=== PATIENT | female | born 1980 | race Caucasian/White ===

== ENCOUNTER 2017-03-01 02:10 | Inpatient (IN) | payer MEDICAID ==
[~2017-03-01] VITALS: Ht 154.9 cm; Wt 85.2 kg
[2017-03-01 02:54] VITALS: BP 115/72; PULSE 83; RESP 18
[2017-03-01] MEDS ORDERED: LACTATED RINGER'S 1,000 ML IV SCH (03:41)
[2017-03-01] MEDS ORDERED: LIDOCAINE 1% (MPF) 30 ML INJ INJ PRN (04:00)
[2017-03-01] MEDS ORDERED: CARBOPROST 250 MCG INJ IM PRN (04:00)
[2017-03-01] MEDS ORDERED: OXYTOCIN 30 UNITS/LR 500 ML IV SCH ×4 (04:00→12:33)
[2017-03-01] MEDS ORDERED: OXYTOCIN 30 UNITS/LR 500 ML IV PRN (04:00)
[2017-03-01] MEDS ORDERED: MINERAL OIL LIGHT 10 ML VIAL TOP ONE (04:00)
[2017-03-01] MEDS ORDERED: LACTATED RINGER'S 1,000 ML IV PRN (04:00)
[2017-03-01] MEDS ORDERED: MISOPROSTOL 200 MCG TAB PR PRN (04:00)
[2017-03-01] MEDS ORDERED: BUTORPHANOL 2 MG INJ IV PRN (04:00)
[2017-03-01] MEDS ORDERED: IBUPROFEN 600 MG TAB PO PRN (04:00)
[2017-03-01] MEDS ORDERED: METHYLERGONOVINE 0.2 MG INJ IM PRN (04:00)
[2017-03-01 04:08] LABS: BASOPHILS % 0.3 % (0.0-2.0); EOSINOPHILS # 0.2 10^3/ul (0.0-0.5); EOSINOPHILS % 2.3 % (0.0-7.0); HEMATOCRIT 35.6 % (37.0-47.0); HEMOGLOBIN 11.8 g/dl (12.0-16.0); LYMPHOCYTES # 1.8 10^3/ul (0.8-2.9); LYMPHOCYTES % 18.3 % (15.0-51.0); MEAN CORPUSCULAR HGB CONC 33.1 g/dl (32.0-37.0); MEAN CORPUSCULAR VOLUME 93.4 fl (82.0-101.0); MEAN PLATELET VOLUME 9.2 fl (7.4-10.4); MONOCYTES % 10.2 % (0.0-11.0); NEUTROPHILS % 68.3 % (39.0-77.0); PLATELET COUNT 262 10^3/UL (140-415); RED BLOOD COUNT 3.81 10^6/ul (4.20-5.40); RED CELL DISTRIBUTION WIDTH 13.7 % (11.5-14.5); WHITE BLOOD COUNT 9.6 10^3/ul (4.8-10.8)
[2017-03-01 04:15] LABS: INR 0.9; PARTIAL THROMBOPLASTIN TIME 23.3 Sec (25.0-35.0); PROTIME 12.1 Sec (12.2-14.2); PT RATIO 0.9
[2017-03-01] MEDS ORDERED: LACTATED RINGER'S 1,000 ML IV ONE (04:39)
--- NOTE | 2017-03-01 04:41 | RADRPT ---
PROCEDURE: Obstetrical ultrasound, limited. CLINICAL INDICATION: Pelvic pain. TECHNIQUE: Multiple sonographic images of the pelvis were obtained using transabdominal technique . Images were obtained with eli scale and color Doppler. The images were reviewed on a PACS works tation. COMPARISON: No prior studies are available for comparison. FINDINGS: There is a single living intrauterine gestation with the fetus in a vertex presentation. hear t tones of 148 beats per minute are identified. The placenta is posterior in location, grade 2. Th ere is no evidence of placenta previa or abruption. Measurements were made in order to determine age. The results are as follows: BPD =8.68 cm HC =32.30 cm AC =34.36 cm FL =7.76 cm. Estimated gestational age of approximately 37 weeks and 3 days. The estimated date of delivery is 03/19/2017. The EFW = 3361 +/- 504 grams. Estimated weight percentage equals 56.3%. IMPRESSION: Single viable intrauterine gestation of approximately 37 weeks and 3 days, with an ultrasound GALINA of 03/19/2017. .Guido Damian MD, MD Date Time Electronically viewed and signed by .Guido Damian MD, MD on 03/01/2017 04:40 .T/
[2017-03-01] MEDS ORDERED: TRIMETHOBENZAMIDE 100 MG/ML VIAL IM PRN (05:00)
[2017-03-01] MEDS ORDERED: CITRIC ACID/NA CITRATE 30 ML CUP PO ONE (05:00)
[2017-03-01] MEDS ORDERED: FENTAnyl 2MCG/ML-ROPIV 0.2% 100 ML BAG EPI SCH ×2 (05:00)
[2017-03-01] MEDS ORDERED: ONDANSETRON 4 MG INJ IV PRN ×3 (05:00→14:30)
[2017-03-01] MEDS ORDERED: NALOXONE (0.4 MG/ML) INJ IV PRN (05:00)
[2017-03-01] MEDS ORDERED: KETOROLAC 30 MG INJ IV PRN (05:00)
[2017-03-01] MEDS ORDERED: DIPHENHYDRAMINE 50 MG INJ IV PRN (05:00)
[2017-03-01] MEDS ORDERED: NALBUPHINE HCL (10 MG/1 ML) INJ IV PRN (05:00)
[2017-03-01] MEDS ORDERED: morphine 2 MG INJ IV PRN (05:00)
[2017-03-01] MEDS ORDERED: morphine 4 MG/ML VIAL IV PRN (05:00)
--- NOTE | 2017-03-01 06:09 | HP ---
Date/Time of Note Date/Time of Note DATE: 03/01/17 TIME: 05:55 OB - History Hx of Present Free Text/Dictation 36 y.o A2 (x2sab) at 38w2d came to triage with c/o uterine contractions every 5 min apart,with intact membrane. VE 4/70%/-2 antenatally had unevenful course except 1hr GTT high f/b 3hr GTT normal admitted for expectant management. Chief Complaint: uterine contractions q5min Estimated Due Date: Mar 13, 2017 : 6 Para: 3 Spontaneous : 2 Therapeutic : 0 Care: Good Care Ultrasounds: Normal mid trimester US Obstetrical Complications: None Medical Complications: None Past Family/Social History * Past Medical, Surgical, Family and Obstetric Histories reviewed from chart. Blood Type: O+ Rubella: immune RPR/VDRL: Negative GBS Status: Negative HBsAG: Negative OB Admission Exam Vital Signs Vital Signs Vital Signs Date Time Temp Pulse Resp B/P Pulse Ox O2 Delivery O2 Flow Rate FiO2 03/01/17 02:54 98.0 83 18 115/72 Room Air Physical Exam HEENT: WNL Heart: Rhythm Normal Lungs: Clear, Equal Abdomen: WNL Extremities: Normal Reflexes: Normal Cervical Dilatation: 4cm Effacement: 75% Station: -2 Membranes: Intact Amniotic Fluid: Unevaluable Heart Rate: 130's Accelerations: Accelerations Present Decelerations: No Decelerations Varibility: Moderate Contractions on Admission: < 5 Minutes Apart Intensity: Moderate Last 72 hours Lab Results CBC & BMP 03/01/17 03:35 OB Assessment/Plan Reason for admission: active labor Other Assessment: IUP 38w2d Plan: Expectant Management JA HINKLE MD Mar 01, 2017 06:07
[2017-03-01] MEDS ORDERED: EPHEDrine SULFATE 50 MG/5 ML SYG ONE (06:47)
[2017-03-01] MEDS ORDERED: PHENYLephrine (100 MCG/ML) 5ML SYG ONE (06:47)
[2017-03-01] MEDS ORDERED: DIBUCAINE 1% 30 GM OINT PR PRN ×2 (13:00→14:30)
[2017-03-01] MEDS ORDERED: WITCH HAZEL/GLYCERIN PAD PR PRN ×2 (13:00→14:30)
[2017-03-01] MEDS ORDERED: ACETAMINOPHEN 325 MG TAB PO PRN ×2 (13:00→14:30)
[2017-03-01] MEDS ORDERED: HYDROCODONE/APAP (5/325) TAB PO PRN ×3 (13:00→14:30)
[2017-03-01] MEDS ORDERED: BENZOCAINE 20% 56 ML SPRAY TOP PRN ×2 (13:00→14:30)
[2017-03-01] MEDS ORDERED: LANOLIN 7 GM TUBE TOP PRN ×2 (13:00→14:30)
[2017-03-01] MEDS ORDERED: OXYCODONE/ASPIRIN (4.88/325) TAB PO PRN ×3 (13:00→14:30)
[2017-03-01 13:02] VITALS: BP 116/74; PULSE 74; RESP 20
--- NOTE | 2017-03-01 13:43 | LDN ---
Date/Time of Note Date/Time of Note DATE: 03/01/17 TIME: 13:39 Delivery Summary Normal spontaneous vaginal delivery of a baby boy from OA position was delivered with no difficulty rest of the baby's body follow placenta spontaneous expulsion inspected complete peritoneal vaginal inspection no laceration estimated blood loss 200 cc Weeks of Gestation 38 weeks 2 days Placenta Delivered: Spontaneously Meconium: none Episiotomy: No Laceration repair: None Anesthesia type: Epidural Estimated blood loss: 200 Sponge & Needle done & correct: Yes All needle counts correct: Yes Any foreign bodies felt in the: No Problems: Infant Delivery Information Sex Sex: male Apgars 1 Minute: 9 5 Minute: 9 Suctioning Nose & mouth suctioned at renetta: Yes Delee suction performed: No Umbilical Cord Umbilical cord with: 3 Vessels Cord presentations: nuchal cord Cord Blood was obtained: Yes Mother & Baby Disposition Disposition Mom & Baby to Maternity; Good: Yes RICHMOND RUSS MD Mar 01, 2017 13:43
[2017-03-01 16:30] VITALS: BP 107/58; PULSE 83; RESP 20
[2017-03-01] MEDS: OXYTOCIN 30 UNITS/LR 500 ML IV SCH ×2 (16:43→18:08)
[2017-03-01] MEDS ORDERED: IBUPROFEN 600 MG TAB PO SCH (18:00)
[2017-03-01] MEDS: IBUPROFEN 600 MG TAB PO SCH (18:00)
[2017-03-01 20:00] VITALS: BP 107/66; PULSE 75; RESP 19
[2017-03-01] MEDS: HYDROCODONE/APAP (5/325) TAB PO PRN (20:22)
[2017-03-01] MEDS ORDERED: SENNA/DOCUSATE NA (8.6MG/50MG) TAB PO SCH (21:00)
[2017-03-02] VITALS: BP 99/64; PULSE 72; RESP 18
[2017-03-02] MEDS: IBUPROFEN 600 MG TAB PO SCH ×5 (00:02→23:21)
[2017-03-02] MEDS: OXYCODONE/ASPIRIN (4.88/325) TAB PO PRN (03:01)
[2017-03-02 04:00] VITALS: BP 97/53; PULSE 77; RESP 17; RESP 77
[2017-03-02 08:48] VITALS: BP 87/53; PULSE 77; RESP 19
[2017-03-02] MEDS: SENNA/DOCUSATE NA (8.6MG/50MG) TAB PO SCH ×2 (09:15→21:42)
--- NOTE | 2017-03-02 10:26 | PN ---
Date/Time of Note Date/Time of Note DATE: 03/02/17 TIME: 10:24 OB Subjective Subjective Subjective March 02, 2017 Post C section day 2 Doing Well Afebrile Ambulatory Chest Clear Breasts are soft , Nipples are intact Abdomen is soft Fundus is firm Moderate amount of lochia Perineum intact No calf tenderness No ankle edema Laboratory Tests Test 03/02/17 10:01 White Blood Count Pending Red Blood Count Pending Hemoglobin Pending Hematocrit Pending Mean Corpuscular Volume Pending Mean Corpuscular Hemoglobin Pending Mean Corpuscular Hemoglobin Concent Pending Red Cell Distribution Width Pending Platelet Count Pending Mean Platelet Volume Pending Current Medications Medications (Trade) Dose Ordered Sig/Leyla Route PRN Reason Start Time Stop Time Status Last Admin Dose Admin Lactated Ringer's (Lr) 1,000 ml @ 125 mls/hr Q8H IV 03/01/17 03:41 03/01/17 12:40 DC 03/01/17 04:00 Butorphanol Tartrate (Stadol) 2 mg Q2H PRN IV PAIN 03/01/17 04:00 03/01/17 12:40 DC Lidocaine 30 ml 30 ml ONCE PRN INJ EPISIOTOMY/TEARING 03/01/17 04:00 03/01/17 12:40 DC Oxytocin/Lactated Ringer's 500 ml @ 125 mls/hr ONCE -MAY REPEAT X1 IV 03/01/17 04:00 03/01/17 12:40 DC 03/01/17 12:38 Oxytocin/Lactated Ringer's 500 ml @ 125 mls/hr ONCE IV 03/01/17 04:00 03/01/17 12:40 DC Ibuprofen 600 mg 600 mg ONCE PRN PO Mild Pain (Pain Score 1-3) 03/01/17 04:00 03/01/17 12:40 DC 03/01/17 11:29 Lactated Ringer's 1,000 ml @ 2,000 mls/hr Q30M PRN IV PRE-EPIDURAL BOLUS 03/01/17 04:00 03/01/17 12:40 DC 03/01/17 04:27 Oxytocin/Lactated Ringer's 500 ml @ 0 mls/hr ONCE PRN IV For Hemorrhage Management 03/01/17 04:00 03/01/17 12:40 DC Methylergonovine Maleate (Methergine) 0.2 mg ONCE PRN IM VAGINAL BLEEDING 03/01/17 04:00 03/01/17 12:41 DC 03/01/17 11:11 Carboprost Tromethamine (Hemabate) 250 mcg ONCE PRN IM VAGINAL BLEEDING 03/01/17 04:00 03/01/17 12:41 DC Misoprostol (Cytotec) 1,000 mcg ONCE PRN IN VAGINAL BLEEDING 03/01/17 04:00 03/01/17 12:41 DC Mineral Oil ONCE ONCE TOP 03/01/17 04:00 03/01/17 04:01 DC Lactated Ringer's (Lr) 1,000 ml @ 1,000 mls/hr Q1H ONCE IV 03/01/17 04:39 03/01/17 05:38 DC 03/01/17 05:07 Citric Acid/ Sodium Citrate (Bicitra) 30 ml PRE-OP ONCE PO 03/01/17 05:00 03/01/17 05:01 DC 03/01/17 05:05 Naloxone HCl (Narcan) 0.1 mg Q2M PRN IV FOR RESP RATE 8 OR LESS 03/01/17 05:00 03/01/17 12:41 DC Ketorolac Tromethamine (Toradol) 30 mg Q6H PRN IV PAIN 03/01/17 05:00 03/01/17 12:41 DC Morphine Sulfate (morphine) 2 mg Q3H PRN IV PAIN LEVEL 1-5 03/01/17 05:00 03/01/17 12:41 DC Morphine Sulfate (morphine) 4 mg Q3H PRN IV PAIN LEVEL 6-10 03/01/17 05:00 03/01/17 12:41 DC Diphenhydramine HCl (Benadryl) 25 mg Q6H PRN IV ITCHING 03/01/17 05:00 03/01/17 12:41 DC Nalbuphine HCl (Nubain) 5 mg ONCE PRN IV ITCHING 03/01/17 05:00 03/01/17 12:41 DC Ondansetron HCl (Zofran Inj) 4 mg Q6H PRN IV NAUSEA AND/OR VOMITING 03/01/17 05:00 03/01/17 12:41 DC 03/01/17 05:05 Trimethobenzamide HCl (Tigan) 200 mg Q6H PRN IM NAUSEA AND/OR VOMITING 03/01/17 05:00 03/01/17 12:41 DC Fentanyl/ Ropivacaine 100 ml EPIDURAL INFUSION EPI 03/01/17 05:00 03/01/17 07:20 DC Ephedrine Sulfate 50 mg STK-MED ONCE .ROUTE 03/01/17 06:47 03/01/17 06:48 DC Phenylephrine HCl (Dillan-Synephrine Inj Syg) 500 mcg STK-MED ONCE .ROUTE 03/01/17 06:47 03/01/17 06:48 DC Fentanyl/ Ropivacaine 100 ml 100 ml EPIDURAL INFUSION EPI 03/01/17 05:00 03/01/17 12:41 DC Oxytocin/Lactated Ringer's 500 ml @ 0 mls/hr Q0M IV 03/01/17 08:30 03/01/17 12:41 DC 03/01/17 08:45 Oxytocin/Lactated Ringer's 500 ml @ 125 mls/hr Q4H IV 03/01/17 12:33 03/01/17 14:11 DC Ibuprofen (Motrin) 600 mg Q6 PO 03/01/17 18:00 03/01/17 18:00 DC Acetaminophen (Tylenol Tab) 650 mg Q4H PRN PO PAIN LEVEL 1-5 03/01/17 13:00 03/01/17 14:11 DC Acetaminophen/ Hydrocodone Bitart ([place] (5/325)) 1 tab Q4H PRN PO PAIN LEVEL 1-5 03/01/17 13:00 03/01/17 14:11 DC Acetaminophen/ Hydrocodone Bitart (Reynolds (5/325)) 2 tab Q4H PRN PO PAIN LEVEL 6-10 03/01/17 13:00 03/01/17 14:11 DC Oxycodone/Aspirin (Percodan) 1 tab Q3H PRN PO PAIN LEVEL 1-5 03/01/17 13:00 03/01/17 14:11 DC Oxycodone/Aspirin (Percodan) 2 tab Q3H PRN PO PAIN LEVEL 6-10 03/01/17 13:00 03/01/17 14:11 DC Ondansetron HCl (Zofran Inj) 4 mg Q6H PRN IV NAUSEA AND/OR VOMITING 03/01/17 13:00 03/01/17 14:11 DC Senna/Docusate Sodium (Senokot-S) 1 tab BID PO 03/01/17 21:00 03/01/17 21:00 DC Witch Tammy/ Glycerin (Tucks Pads) 1 pad BEDSIDE MEDICATION PRN IN HEMORRHOID/EPISIOTMY PAIN 03/01/17 13:00 03/01/17 14:10 DC Benzocaine (Dermoplast [place]) 1 spray BEDSIDE MEDICATION PRN TOP HEMORRHOID/EPISIOTMY PAIN 03/01/17 13:00 03/01/17 14:10 DC Dibucaine (Nupercainal) 1 applic BEDSIDE MEDICATION PRN IN HEMORRHOID/EPISIOTMY PAIN 03/01/17 13:00 03/01/17 14:10 DC Lanolin (Fqg-L-Qvnoli) 1 applic BEDSIDE MEDICATION PRN TOP BEDSIDE FOR JAREN TO NIPPLES 03/01/17 13:00 03/01/17 14:10 DC Measles/Mumps/ Rubella Vaccine Live (Mmr Ii Vaccine) 0.5 ml ONCE ONCE SC* 03/03/17 09:00 03/03/17 09:00 DC IV Flush 10 ml 10 ml Q8H AND PRN IV 03/01/17 13:00 03/01/17 14:11 DC Oxytocin/Lactated Ringer's 500 ml @ 125 mls/hr Q4H IV 03/01/17 14:08 03/01/17 22:07 DC 03/01/17 16:43 Ibuprofen (Motrin) 600 mg Q6 PO 03/01/17 14:30 03/02/17 06:03 Acetaminophen (Tylenol Tab) 650 mg Q4H PRN PO PAIN LEVEL 1-5 03/01/17 14:30 03/01/17 14:35 Acetaminophen/ Hydrocodone Bitart ([place] (5/325)) 1 tab Q4H PRN PO PAIN LEVEL 1-5 03/01/17 14:30 03/01/17 20:22 Acetaminophen/ Hydrocodone Bitart ([place] (5/325)) 2 tab Q4H PRN PO PAIN LEVEL 6-10 03/01/17 14:30 Oxycodone/Aspirin (Percodan) 1 tab Q3H PRN PO PAIN LEVEL 1-5 03/01/17 14:30 03/02/17 03:01 Oxycodone/Aspirin (Percodan) 2 tab Q3H PRN PO PAIN LEVEL 6-10 03/01/17 14:30 Ondansetron HCl (Zofran Inj) 4 mg Q6H PRN IV NAUSEA AND/OR VOMITING 03/01/17 14:30 Senna/Docusate Sodium (Senokot-S) 1 tab BID PO 03/02/17 09:00 03/02/17 09:15 Witch Tammy/ Glycerin (Tucks Pads) 1 pad BEDSIDE MEDICATION PRN IN HEMORRHOID/EPISIOTMY PAIN 03/01/17 14:30 03/02/17 09:15 Benzocaine (Dermoplast [place]) 1 spray BEDSIDE MEDICATION PRN TOP HEMORRHOID/EPISIOTMY PAIN 03/01/17 14:30 03/01/17 14:35 Dibucaine (Nupercainal) 1 applic BEDSIDE MEDICATION PRN IN HEMORRHOID/EPISIOTMY PAIN 03/01/17 14:30 03/02/17 09:16 Lanolin (Vkl-D-Tjdehs) 1 applic BEDSIDE MEDICATION PRN TOP BEDSIDE FOR JAREN TO NIPPLES 03/01/17 14:30 03/02/17 09:21 Measles/Mumps/ Rubella Vaccine Live (Mmr Ii Vaccine) 0.5 ml ONCE ONCE SC* 03/03/17 09:00 03/03/17 09:01 New born is doing well, Breast feeding KISHOR BONILLA MD Mar 02, 2017 10:26
[2017-03-02 10:32] LABS: BASOPHILS % 0.4 % (0.0-2.0); EOSINOPHILS # 0.3 10^3/ul (0.0-0.5); EOSINOPHILS % 3.5 % (0.0-7.0); HEMATOCRIT 31.4 % (37.0-47.0); HEMOGLOBIN 10.2 g/dl (12.0-16.0); LYMPHOCYTES # 1.8 10^3/ul (0.8-2.9); LYMPHOCYTES % 21.1 % (15.0-51.0); MEAN CORPUSCULAR HEMOGLOBIN 31.4 pg (29.0-33.0); MEAN CORPUSCULAR HGB CONC 32.5 g/dl (32.0-37.0); MEAN CORPUSCULAR VOLUME 96.6 fl (82.0-101.0); MEAN PLATELET VOLUME 9.4 fl (7.4-10.4); MONOCYTE # 0.6 10^3/ul (0.3-0.9); MONOCYTES % 7.3 % (0.0-11.0); NEUTROPHILS % 66.9 % (39.0-77.0); PLATELET COUNT 217 10^3/UL (140-415); RED BLOOD COUNT 3.25 10^6/ul (4.20-5.40); WHITE BLOOD COUNT 8.4 10^3/ul (4.8-10.8)
[2017-03-02 15:35] VITALS: BP 86/53; PULSE 83; RESP 18
[2017-03-02 20:00] VITALS: BP 105/65; PULSE 79; RESP 18
[2017-03-03] MEDS: OXYCODONE/ASPIRIN (4.88/325) TAB PO PRN (03:41)
[2017-03-03 04:00] VITALS: BP 94/60; PULSE 77; RESP 18
[2017-03-03] MEDS: IBUPROFEN 600 MG TAB PO SCH ×2 (05:51→12:01)
[2017-03-03 08:00] VITALS: BP 101/56; PULSE 79; RESP 19
[2017-03-03] MEDS: SENNA/DOCUSATE NA (8.6MG/50MG) TAB PO SCH (08:41)
[2017-03-03] MEDS ORDERED: MEASLES,MUMPS,RUBELLA VACCINE INJ SC* ONE ×2 (09:00)
--- NOTE | 2017-03-03 10:02 | PD.PPDC ---
DRIP MOLDER Discharge Instruction Condition Patient Condition: Good Diet Diet: Resume Regular Diet Activity/Restrictions Activity: Normal Activity May Shower Restrictions: No Exercising No Lifting No Driving No Sexual Activity Nothing in the Vagina No [place] No Tampons, douche Follow-up Follow-up with Physician: 2 Provider Information: instructions given recommended to make appointment to be seen at the clinic in 2 weeks Return to clinic for RUG LAYER Instructions: Fever greater than 101 Chills Worsening abdominal pain Excessive Vaginal Bleeding More than 2 pads per hour Unable to tolerate diet OB Instructions: Breast Tenderness Depression Blurried Vision Headache RICHMOND RUSS MD Mar 03, 2017 10:02
--- NOTE | 2017-03-03 10:04 | DS ---
Date/Time of Note Date/Time of Note DATE: 03/03/17 TIME: 10:02 Discharge Summary Admission/Discharge Info Admit Date/Time Mar 01, 2017 at 02:50 Discharge Date/Time March 03, 2017 at 10 AM Discharge Diagnosis Post normal vaginal delivery day 2 Patient Condition: Good Procedures Normal vaginal delivery Hx of Present Illness Term Hospital Course Satisfactory uneventful Follow-up Plan instructions given recommended to make appointment to be seen at the clinic in 2 weeks Primary Care Provider Care Physician No Primary Time spent on discharge: < 30 minutes RICHMOND RUSS MD Mar 03, 2017 10:04
[2017-03-03] MEDS: HYDROCODONE/APAP (5/325) TAB PO PRN (10:59)
== END 2017-03-03 14:15 | disposition home or self-care (01) | DRG 775 ==
LOC: OBT 02:10 → L-D 02:10 → OBT 02:50 → L-D 02:50 → PP1 12:25
PROVIDERS: ADMIT Obstetrics & Gynecology; ATTEND Obstetrics & Gynecology
PROC: 10E0XZZ Delivery of Products of Conception, External Approach (ICD-10-PCS; principal; 2017-03-01)
DX: O99.214 Obesity complicating childbirth (principal); E66.9 Obesity, unspecified; Z68.35 Body mass index [BMI] 35.0-35.9, adult; Z3A.38 38 weeks gestation of pregnancy; Z37.0 Single live birth
CPT/HCPCS: 62319; 76815; 85025; 85610; 85730; 86592; 86900; 86901; G0463; J2210; J2370; J2405; J2590; J3010; J7120